=== PATIENT | female | born 1995 | race Caucasian/White ===

== ENCOUNTER 2017-07-17 01:06 | Emergency (ER) | payer OTHER ==
[~2017-07-17] VITALS: Ht 165.1 cm; Wt 67.5 kg
[~2017-07-17 01:06] MED LIST: CLONIDINE HCL0.3 MG; LEXAPRO20 MG; STRATTERA60 MG
[2017-07-17 01:12] VITALS: BP 101/67
== END 2017-07-17 03:53 | disposition left against medical advice (07) ==
LOC: EME 01:06
DX: Z53.21 Procedure and treatment not carried out due to patient leaving prior to being seen by health care provider (principal)